=== PATIENT | male | born 1970 | race Caucasian/White ===

== ENCOUNTER 2017-03-24 20:17 | Emergency (ER) | payer OTHER ==
[~2017-03-24] VITALS: Ht 175.3 cm; Wt 81.0 kg
[~2017-03-24 20:17] MED LIST: DAYPRO600 MG PO; FLEXERIL10 MG PO; MORPHINE SULFAT60 MG PO; VALIUM10 MG PO
[2017-03-24 20:26] VITALS: BP 158/89
== END 2017-03-24 21:45 | disposition home or self-care (01) ==
LOC: EME 20:17
DX: S61.213A Laceration without foreign body of left middle finger without damage to nail, initial encounter (principal); S61.215A Laceration without foreign body of left ring finger without damage to nail, initial encounter; S60.411A Abrasion of left index finger, initial encounter; Z23 Encounter for immunization; W29.8XXA Contact with other powered hand tools and household machinery, initial encounter
CPT/HCPCS: 73130; 99281; 99283; S0020